=== PATIENT | male | born 1930 | race Caucasian/White ===

== ENCOUNTER 2018-12-25 17:28 | Inpatient (IN) ==
[2018-12-25 18:04] LABS: BASO# 0.03 X1000 (0.0-0.2); BASO% 0.3 % (0.0-0.8); EOS# 0.16 X1000 (0.0-0.7); EOS% 1.6 % (0.0-10.0); HEMATOCRIT 29.7 % (42.0-52.0); HEMOGLOBIN 10.4 g/dL (14.0-18.0); IMM GRAN# 0.02 X1000 (0.0-0.04); IMM GRAN% 0.2 % (0.0-0.5); LYMPH# 1.24 X1000 (1.2-3.4); LYMPH% 12.4 % (20.5-51.1); MCH 30.3 PG (27-31); MCV 86.6 FL (81-99); MONO# 0.65 X1000 (0.11-0.59); MONO% 6.5 % (1.7-9.3); MPV 8.6 FL (7.4-10.4); NEUT# 7.88 X1000 (1.4-6.5); PLT 311 X1000 (130-400); RBC 3.43 XMIL (4.7-6.1); RDW 13.2 % (11.5-14.5); WBC 9.98 X1000 (4.8-10.8)
[2018-12-25 18:42] LABS: ESTIMATED GFR > 60
--- NOTE | 2018-12-25 18:42 | Diag Imaging Result Doc PS360 ---
EXAM: CT HEAD/C-SPINE W/O CONTRAST INDICATION: fall head injury concrete TECHNIQUE: This exam was performed using automated exposure control, adjustment of mA or kV according to patient size, and/or use of iterative reconstruction technique. COMPARISON: 10/25/2018 FINDINGS: Head: There is fairly advanced diffuse brain atrophy. There is a stable hygroma overlying the left cerebral hemisphere. These findings are stable. There is no definite acute infarct given the limited sensitivity of CT versus MRI. There is no discrete intracranial mass, mass effect, or acute intracranial hemorrhage. There are bifrontal craniotomy defects. The calvaria is intact, otherwise. There is chronic left maxillary sinus mucosal disease, stable. C-spine: There is multilevel degenerative disc disease and facet arthropathy that is essentially stable as compared to the previous study. Otherwise, there is no discrete fracture, subluxation, or intrinsic osseous lesion. The surrounding soft tissues are essentially unremarkable. IMPRESSION: 1.Stable chronic changes but no evidence of acute intracranial pathology. 2.Stable multilevel degenerative arthropathy but no evidence of fracture or other definite acute C-spine injury. Electronically signed by Levi Bonilla 12/25/2018 6:40 PM
--- NOTE | 2018-12-25 18:48 | Diag Imaging Result Doc PS360 ---
EXAM: CHEST-2 VIEWS INDICATION: uri copd TECHNIQUE: 2 views COMPARISON: 08/16/2018 FINDINGS: The lungs are grossly clear. There is no discrete pleural fluid collection or pneumothorax. The cardiomediastinal silhouette and central vasculature are grossly unremarkable. IMPRESSION: No evidence of acute pathology by plain radiograph. Electronically signed by Levi Bonilla 12/25/2018 6:45 PM
[2018-12-25 18:59] LABS: AGAP 11; ALBUMIN 3.5 g/dL (3.5-5.0); ALKALINE PHOSPHATASE 141 U/L (32-122); BUN 9 mg/dL (8-22); CALCIUM 8.7 mg/dL (8.8-10.2); CHLORIDE 86 mmol/L (98-107); COSMO 242; CREATININE 0.6 mg/dL (0.7-1.2); GLUCOSE 113 mg/dL (70-104); GOT 23 U/L (10-34); GPT 16 U/L (10-44); POTASSIUM 4.2 mmol/L (3.5-5.1); SODIUM 120 mmol/L (136-145); TCO2 24 mmol/L (25-35); TOTAL PROTEIN 6.5 g/dL (6.3-8.3)
[2018-12-25] MEDS ORDERED: XYLOCAINE-MPF 1% ONE (19:09)
[2018-12-25] MEDS ORDERED: XYLOCAINE-MPF 1% INJ ONE (19:12)
[2018-12-25] MEDS ORDERED: NS 1,000 ML ONE (22:20)
[2018-12-25] MEDS ORDERED: NS 1,000 ML IV ONE (22:22)
[2018-12-26 02:04] LABS: BILIRUBIN URINE NEGATIVE (NEGATIVE); BLOOD URINE NEGATIVE (NEGATIVE); CLARITY SL. CLOUDY (CLEAR); COLOR YELLOW; GLUCOSE URINE NEGATIVE (NEGATIVE); KETONE URINE NEGATIVE (NEGATIVE); LEUKOCYTES URINE 2+ (NEGATIVE); NITRITE URINE NEGATIVE (NEGATIVE); PROTEIN URINE NEGATIVE (NEGATIVE); SP GRAVITY URINE 1.005; UROBILINOGEN URINE NORMAL
[2018-12-26 02:05] LABS: URINE WBC TNTC /HPF (<10)
[2018-12-26 02:06] LABS: URINE BACTERIA 4+ /HFP; URINE EPITHELIAL CELLS <10 /HPF (<10); URINE RBC <10 /HPF (<10); URINE SOURCE CLEAN CATCH
[2018-12-26] MEDS ORDERED: CIPRO PO ONE (03:19)
--- NOTE | 2018-12-26 04:02 | PROVIDER DOCUMENTATION ---
This chart was entered by Saranya Bonilla Scribe, acting as scribe for Sushil Garrido MD. HPI-Head Injury - General Chief Complaint: Head Injury Stated Complaint: FALL / HEAD INJURY Time Seen by Provider: 12/25/18 19:36 Source: patient Allergies/Adverse Reactions: Patient Allergies Allergy/AdvReac Type Severity Reaction Status Date / Time bee venom protein (honey bee) Allergy Unknown Verified 01/22/18 19:26 gabapentin Allergy Unknown Verified 01/22/18 19:26 Home Medications: Home Medication List Medication Instructions Recorded Confirmed Last Taken Type Atorvastatin Calcium 80 mg PO QHS 01/22/18 08/19/18 01/20/18 History Donepezil HCl 10 mg PO HS 01/22/18 08/16/18 01/20/18 History Finasteride 5 mg PO DAILY 01/22/18 08/16/18 01/20/18 History Levothyroxine Sodium [Synthroid] 100 mcg PO DAILY@0600 01/22/18 08/19/18 History Omeprazole 40 mg PO DAILY@0600 01/22/18 08/19/18 01/20/18 History Quetiapine Fumarate 50 mg PO HS 01/22/18 08/16/18 01/20/18 History Tamsulosin [Flomax] 0.4 mg PO QHS 01/22/18 08/16/18 01/20/18 History Tiotropium Grahn Inhaler 2 puff INH RTDAILY 01/22/18 08/16/18 01/20/18 History [Spiriva] Albuterol Sulfate [Proair Hfa] 2 inh PO Q4HR PRN 08/16/18 08/16/18 Unknown History Clotrimazole/Betamethasone Dip 1 gm TOP DIRECTED 08/16/18 08/16/18 Unknown History [Clotrimazole-Betamethasone Crm] Fluticasone 50 Mcg Nasal [place] 2 spray JESSICA DAILY PRN 08/16/18 08/16/18 Unknown History [Flonase] Latanoprost 1 drop BOTH EYES HS 08/16/18 08/16/18 Unknown History - History of Present Illness-Head Injury Nature of Presenting Problem: 88 yom presents to ed w/co fell face first today, has 2 cuts on front of head on left side. pt has small scratch on right hand. pt has hx of several subdurals in past. Head Injury Location: reports: frontal (left side) Review of Systems - Adult - REVIEW OF SYSTEMS - ADULT Constitutional: reports: no symptoms reported Eyes: reports: no symptoms reported Ears, Nose, Mouth & Throat: reports: no symptoms reported Cardiovascular: reports: no symptoms reported Respiratory: reports: no symptoms reported Gastrointestinal: reports: no symptoms reported Genitourinary: reports: no symptoms reported Musculoskeletal: reports: no symptoms reported Integumentary: reports: see HPI, other (laceration and abrasion on left frontal part of skull) Neurological: reports: no symptoms reported Psychiatric: reports: no symptoms reported Endocrine: reports: no symptoms reported Hematologic/Lymphatic: reports: no symptoms reported Allergic/Immunologic: reports: no symptoms reported All Other Systems: Reviewed and Negative Past History - Adult - PAST MEDICAL HISTORY-ADULT Review of Records: reports: Old Records Reviewed, Nursing Assessment Review, Medications Reviewed, Social history reviewed & non-contributory. Major Childhood Illnesses: reports: denies history Cardiovascular: reports: HTN, hyperlipidemia Respiratory: reports: COPD Gastrointestinal: reports: GERD Obstetrical/Gynecological: reports: denies history Genitourinary: reports: denies history Musculoskeletal: reports: denies history Neurological: reports: dementia (mild), TIA, other (subdural hemorrhages) Endocrine/Immune: reports: Diabetes, thyroid disorder Other Conditions: reports: denies history - PRIOR SURGERIES/PROCEDURES Surgical/Procedure History: reports: other (craniotomy in 1960s) - IMMUNIZATION STATUS Childhood Immunizations: See Nurse Assessment Flu Vaccine: See Nurse Assessment - FAMILY HISTORY Family History: reviewed, not pertinent - SOCIAL HISTORY Smoking: other (former) Substance Use: alcohol Alcohol Use Frequency: occasionally Physical Exam- Neurological - Physical Exam-Neuro Initial Vital Signs Reviewed: Yes General Appearance: appears well, alert, no apparent distress Eye Exam: bilateral eye: normal inspection, PERRL, EOMI HENMT: normocephalic/atraumatic, moist mucous membranes, normal ENT inspection Head Injury: active bleeding, lacerations, tenderness. negative: Diaz's Sign , contusions, raccoon eyes Neck: non-tender, full range of motion, supple, normal inspection Respiratory: chest non-tender, lungs clear, normal breath sounds Cardiovascular: normal peripheral pulses, regular rate, rhythm Abdominal Exam: normal bowel sounds, non tender, soft Lymphatic: no adenopathy Extremity: normal range of motion, non-tender, normal inspection lpc Exam: normal hearing, normal speech, PERRL Coordination/Gait: normal finger to nose Motor/Sensory: no motor deficit, no sensory deficit, no pronator drift Neurologic: lpc II-XII nml as tested, grossly normal, no motor/sensory deficits Integumentary: normal color, normal turgor, warm/dry Psych/Mental Status: normal mood/affect, normal thought content, normal thought process, oriented x 3 - Glascow Coma Scale Best Eye Response: (4) open spontaneously Best Verbal Response: (5) oriented Best Motor Response: (6) obeys commands Total Glascow Score: 15 Progress - PLAN OF CARE/RESULTS Progress/Plan/Lab Results: Vital Signs - 8 hr 12/25/18 22:28 12/26/18 00:32 12/26/18 01:40 Pulse Rate 53 L 52 L 57 L Respiratory Rate 16 18 14 Blood Pressure 149/77 132/74 150/75 O2 Sat by Pulse Oximetry 98 95 100 12/26/18 03:38 Pulse Rate 58 L Respiratory Rate 18 Blood Pressure 150/75 O2 Sat by Pulse Oximetry 97 Laboratory Results - last 24 hr 12/25/18 12/25/18 12/26/18 17:56 17:56 01:18 WBC 9.98 RBC 3.43 L Hgb 10.4 L Hct 29.7 L MCV 86.6 MCH 30.3 MCHC 35.0 RDW Std Deviation 13.2 Plt Count 311 MPV 8.6 Immature Gran % (Auto) 0.2 Neut % (Auto) 79.0 H Lymph % (Auto) 12.4 L [place] % (Auto) 6.5 Eos % (Auto) 1.6 Baso % (Auto) 0.3 Immature Gran # (Auto) 0.02 Neut # (Auto) 7.88 H Lymph # (Auto) 1.24 [place] # (Auto) 0.65 H Eos # (Auto) 0.16 Baso # (Auto) 0.03 Sodium 120 L* Potassium 4.2 Chloride 86 L Carbon Dioxide 24 L Anion Gap 11 BUN 9 Creatinine 0.6 L Estimated GFR/1.73 m2 > 60 BUN/Creatinine Ratio 15 Glucose 113 H Calculated Osmolality 242 Calcium 8.7 L Total Bilirubin 0.30 AST 23 ALT 16 Alkaline Phosphatase 141 H Total Protein 6.5 Albumin 3.5 Globulin 3.0 Albumin/Globulin Ratio 1.0 Urine Source CLEAN CATCH Urine Color YELLOW Urine Clarity SL. CLOUDY A Urine pH 7.0 Ur Specific [place] 1.005 Urine Protein NEGATIVE Urine Ketones NEGATIVE Urine Blood NEGATIVE Urine Nitrite NEGATIVE Urine Bilirubin NEGATIVE Urine Urobilinogen NORMAL Urine Microscopic RBC <10 Urine WBC 2+ A Urine Microscopic WBC TNTC A Ur Epithelial Cells <10 Urine Bacteria 4+ Urine Glucose NEGATIVE Orders Category Date Time Status CHEST-2 VIEWS [RAD] Stat Exams 12/25/18 17:[address] HEAD/C-SPINE W/O CONTRAST [CT] Stat Exams 12/25/18 17:43 Completed CBC WITH DIFF [HEME] Stat Lab 12/25/18 17:56 Completed COMPREHENSIVE METABOLIC PANEL [CHEM] Stat Lab 12/25/18 17:56 Completed UA NIMS W/REFLEX CULT PL [URINALYSIS] Stat Lab 12/26/18 01:18 Completed URINE CULTURE [RM] Routine Lab 12/26/18 02:06 Ordered 0.9% Sodium Chloride Inj [Ns] 1,000 ml Med 12/25/18 22:20 Discontinued .ROUTE As Directed 0.9% Sodium Chloride Inj [Ns] 1,000 ml Med 12/25/18 22:22 Active IV 150 mls/hr Ciprofloxacin [Cipro] Med 12/26/18 03:19 Discontinued 500 mg PO NOW ONE Lidocaine 1% Pf [Xylocaine-Mpf 1%] Med 12/25/18 19:09 Discontinued 30 ml .ROUTE .STK-MED ONE Lidocaine 1% Pf [Xylocaine-Mpf 1%] Med 12/25/18 19:12 Discontinued 30 ml INJ NOW ONE EKG [EKG] Stat Ther 12/25/18 22:28 Ordered Result Diagrams: 12/25/18 17:56 12/25/18 17:56 - REASSESSMENT Reassessment #1 Time Reassessed: 19:30 (Dr. Garrido administered 4 sutures in pt's left frontal skull on laceration) Status: improving - EKG 1 Time of EKG reading by physician:: 22:35 EKG Read and Signed by:: Sushil Garrido (questionable lead plaement, v3/v2) EKG Interpretation (*Must complete 3 of following elements*): Abnormal Rate: 49 (anterior infract age undetermined ) Rhythm: Junctional rhythm w/occ premature ventricular complexes Beeler: normal QRS: normal Departure - Departure Date of Disposition Decision: 12/26/18 Time of Disposition Decision: 04:01 DIAGNOSIS: Hyponatremia, COPD (chronic obstructive pulmonary disease) with emphysema Disposition: HOME 01 Certified Medical Emergency: Emergent Condition: Stable Referrals and Follow-Ups: Zach Feldman MD [Primary Care Provider] - - Critical Care Note This patient required my direct & personal management of CC.: No Attestation - Physician/ HORTENCIA Attestation Patient care was provided by Advanced Practice Provider:: No The physician spent face to face time with patient:: Yes Advanced Practice Provider documentation review:: Supervising physician onsite and consulted in the evaluation and care of this patient. The physician did have a face to face encounter with the patient. This chart was documented by the indicated scribe, (Saranya Bonilla Scribe) and accurately reflects the services I performed and decisions made by me, Sushil Garrido MD, as attested by the provider's signature.
[2018-12-26] MEDS ORDERED: NS 1,000 ML IV ONE (06:17)
[2018-12-26] MEDS ORDERED: LIDODERM TOP ONE (06:31)
[2018-12-26 06:52] LABS: AGAP 9; BUN 7 mg/dL (8-22); CALCIUM 8.3 mg/dL (8.8-10.2); CHLORIDE 92 mmol/L (98-107); COSMO 249; CREATININE 0.5 mg/dL (0.7-1.2); ESTIMATED GFR > 60; GLUCOSE 86 mg/dL (70-104); POTASSIUM 3.8 mmol/L (3.5-5.1); SODIUM 125 mmol/L (136-145); TCO2 24 mmol/L (25-35)
[2018-12-26] MEDS: CIPRO PO ONE ×2 (08:44→08:50)
[2018-12-26] MEDS: ROCEPHIN 1 GM in NS 50 ML IV SCH (10:54)
[2018-12-26] MEDS: NS 1,000 ML IV SCH ×2 (10:54→17:23)
[2018-12-26 12:38] LABS: AGAP 8; BUN 6 mg/dL (8-22); CALCIUM 8.3 mg/dL (8.8-10.2); CHLORIDE 92 mmol/L (98-107); COSMO 252; CREATININE 0.5 mg/dL (0.7-1.2); ESTIMATED GFR > 60; GLUCOSE 117 mg/dL (70-104); POTASSIUM 3.4 mmol/L (3.5-5.1); SODIUM 126 mmol/L (136-145); TCO2 25 mmol/L (25-35)
--- NOTE | 2018-12-26 12:49 | HISTORY AND PHYSICAL ---
PRIMARY CARE PHYSICIAN: Zach Feldman MD. CHIEF COMPLAINT: "I walked out of my garage and my foot caught on the concrete." HISTORY OF PRESENTING ILLNESS: This is an 88-year-old male who presents to [facility] ER stating that he fell face-first and had 2 cuts on the front side of his head on the left side and a small scratch on his right hand. States he was walking out in his garage and his foot got caught on the concrete and he tripped and fell. He has a history of multiple falls with several ER visits over the past year including several subdural hematomas in the past. He has poor short-term memory. His workup in the ER showed a sodium of 120. Urinalysis showed negative nitrites, but 2+ white blood cells and 4+ bacteria. We did do a CT of the head and cervical spine that showed stable chronic changes but no evidence of acute intracranial pathology. Stable multilevel degenerative arthropathy but no evidence of fracture or other definite acute cervical spine injury. The laceration to the left side of his head did require some stitches that were placed by the ER physician x4 stitches. He tolerated that procedure well and was admitted for further evaluation and treatment. PAST MEDICAL HISTORY: Hypertension, hyperlipidemia, COPD, GERD, dementia, TIA, subdural hematomas, diabetes, and hypothyroidism. PAST SURGICAL HISTORY: Craniotomy in the 1960s. FAMILY HISTORY: Reviewed and noncontributory. SOCIAL HISTORY: He currently lives alone, but has 2 volunteer caregivers. He continues to smoke 1 cigarette daily. Denies any illicit drug use. Also drinks occasional beer and wine. ALLERGIES: Bee venom, protein, and Gabapentin. HOME MEDICATIONS: We will need to obtain a current list to review and reconcile and restart as appropriate. I have placed an order for nursing to update and confirm home medications. REVIEW OF SYSTEMS: He denied any fever, chills, blurred vision. He does report a headache and he does have dizziness. Denies any cough, congestion, shortness of breath, abdominal pain, constipation, diarrhea, or burning or hurting with urination. PHYSICAL EXAMINATION: VITAL SIGNS: On arrival, he had a temperature of 98 degrees, pulse 57, respirations 18, blood pressure 165/57, saturating 99% on room air. GENERAL: This is an 88-year-old male lying in the bed. Able to answer questions, but does have some confusion. Short-term memory loss. HEENT: He is noted to have a laceration to the left side of his scalp that has been sutured with 4 sutures, oozing a small amount of serous drainage. He has a small laceration above his left eyebrow that is closed. Normal ENT inspection. Oropharynx and nares are clear. NECK: Normal inspection. Normal range of motion. HEART: Regular rate and rhythm. No murmurs, rubs, or gallops. ABDOMEN: Soft, nontender, nondistended. Bowel sounds are present x4 quadrants. EXTREMITIES: He has 3/5 strength x4 extremities. NEUROLOGICAL: Cranial nerves II through XII grossly intact. ASSESSMENT: 1. Frequent falls. 2. Hyponatremia. 3. Urinary tract infection. 4. Laceration to left anterior forehead. 5. Dementia. PLAN: He was admitted to the medical unit at [place], placed on a healthy heart diet. We will get physical therapy to evaluate and we will do urine sodium, osmolality. Urine culture is pending. We are going to check another basic metabolic profile at noon today. This morning's has gone up from 120 on arrival to 125. He is on normal saline at 150 mL an hour. When the current bag finishes, we will decrease to [address] him on Rocephin 1 gram IV q.24 h. and then recheck a CBC and BMP in the a.m. We will have [facility] to consult patient for possible rehab. We will get physical therapy to evaluate and treat. Just about every visit to the ER over the past year has been related to some type of fall and injury to his head. Again, he lives along with some volunteer caregivers so I feel like he probably is going to need at least some rehab at this time. We will evaluate his home medications as stated earlier to see if he is on any type of diuretics. We will hold those if he is, but we will review those once we obtain a current list. Further orders after seen by attending. Dictated by PETE Davalos for Amari Smith MD cc: PETE Davalos MD Akram Haggag, MD
--- NOTE | 2018-12-26 13:46 | EKG Report ---
Test Performed on : 12/25/2018 10:35:44 PM Test Reason : hr Blood Pressure : / mmHG Vent. Rate : 049 BPM Atrial Rate : 051 BPM P-R Int : 000 ms QRS Dur : 094 ms QT Int : 496 ms P-R-T Axes : 000 -28 -15 degrees QTc Int : 448 ms Junctional rhythm. with occasional premature ventricular complexes. Anterior infarct , age undetermined Abnormal ECG When compared with ECG of 16-AUG-2018 09:37, premature ventricular complexes. are now present Anterior infarct is now present Nonspecific T wave abnormality no longer evident in Anterior leads Unconfirmed Result
[2018-12-26] MEDS ORDERED: XYLOCAINE 4% TOPICAL SOLUTION TOP PRN (17:37)
[2018-12-26] MEDS: ARICEPT PO SCH (20:09)
[2018-12-26] MEDS: ZYRTEC PO SCH (20:09)
[2018-12-26] MEDS: SEROQUEL PO SCH (20:09)
[2018-12-26] MEDS: FLOMAX PO SCH (20:09)
[2018-12-26] MEDS: LIPITOR PO SCH (20:09)
[2018-12-26] MEDS: XALATAN 0.005% OPH SOLN BOTH EYES SCH (20:10)
--- NOTE | 2018-12-26 20:10 | PROGRESS NOTE ---
DATE: 12/26/2018 SUBJECTIVE: The patient has no major complaints. He seems to be doing well. Apparently fell earlier today. He thinks he is fine and this was all out of, I am not sure what to say, out of line or exaggeration but not completely sure he understands everything. He has quite got complete insight into his disease state. He says he drinks 15 cups of coffee a day. There was some mention of drinking wine, but then he states it is unclear if he drinks that every day and I am not sure if he would be able to give an accurate assessment in any case. He lives in assisted living, presumably that would be regulated somewhat, but he has had several subdural hematomas. In any case he was hyponatremic without a clear source. That has since improved. He is not on anything that would necessarily make him hyponatremic. Mechanism is not completely evident, but he is slowly improving. We will continue normal saline and follow his levels. There is also concern over possible UTI based on his urine culture had [id number]-count white blood cells, so we will empirically trend that. This is a [id number] encounter note with Emily Gómez. cc: MD Zach Inman MD
[2018-12-27] MEDS: NS 1,000 ML IV SCH ×3 (02:29→13:05)
[2018-12-27] MEDS: PRILOSEC PO SCH (05:14)
[2018-12-27] MEDS: SYNTHROID PO SCH (05:15)
[2018-12-27 07:24] LABS: BASO# 0.03 X1000 (0.0-0.2); BASO% 0.4 % (0.0-0.8); EOS# 0.16 X1000 (0.0-0.7); EOS% 2.1 % (0.0-10.0); HEMATOCRIT 29.6 % (42.0-52.0); HEMOGLOBIN 10.1 g/dL (14.0-18.0); IMM GRAN# 0.01 X1000 (0.0-0.04); IMM GRAN% 0.1 % (0.0-0.5); LYMPH# 1.03 X1000 (1.2-3.4); LYMPH% 13.5 % (20.5-51.1); MCH 29.8 PG (27-31); MCHC 34.1 g/dL (33-37); MCV 87.3 FL (81-99); MONO# 0.46 X1000 (0.11-0.59); NEUT# 5.96 X1000 (1.4-6.5); NEUT% 77.9 % (42.2-75.2); PLT 294 X1000 (130-400); RBC 3.39 XMIL (4.7-6.1); RDW 13.3 % (11.5-14.5); WBC 7.65 X1000 (4.8-10.8)
[2018-12-27 07:25] LABS: AGAP 10; BUN 7 mg/dL (8-22); CALCIUM 8.9 mg/dL (8.8-10.2); CHLORIDE 99 mmol/L (98-107); COSMO 264; CREATININE 0.5 mg/dL (0.7-1.2); ESTIMATED GFR > 60; GLUCOSE 100 mg/dL (70-104); POTASSIUM 3.8 mmol/L (3.5-5.1); SODIUM 133 mmol/L (136-145); TCO2 25 mmol/L (25-35)
[2018-12-27] MEDS: SPIRIVA INH SCH (07:49)
[2018-12-27] MEDS: ROCEPHIN 1 GM in NS 50 ML IV SCH (08:43)
[2018-12-27] MEDS: VITAMIN C PO SCH (08:43)
[2018-12-27] MEDS: PROSCAR PO SCH (08:43)
[2018-12-27] MEDS ORDERED: GEODON IM PRN (14:07)
[2018-12-27] MEDS ORDERED: STERILE WATER INJ. INJ PRN (14:07)
[2018-12-27] MEDS ORDERED: NS 1,000 ML IV SCH (14:15)
--- NOTE | 2018-12-27 19:48 | PROGRESS NOTE ---
DATE: 12/27/2018 SUBJECTIVE: The patient has no major complaints. OBJECTIVE: Vital Signs: Blood pressure is 142/64, heart rate of 58, respiratory rate of 18, temperature 97.4 degrees. Cardiovascular: Regular rate and rhythm. Pulmonary: Bilateral breath sounds. Clear to auscultation. Gastrointestinal: Soft, nontender, nondistended. Bowel sounds are positive. Extremities: No clubbing or cyanosis. Lymphatics: No peripheral edema. Neurological: Nonfocal. LABORATORY DATA: White count 7, hemoglobin and hematocrit 10 and 29, platelets 294,000. Sodium is up to 133. PROBLEM LIST: 1. Hyponatremia. Overall, seems to be improved. Unclear etiology, although patient is on really nothing that would lower sodium, but is much improved now. We may need to just consider fluid restriction. I am going to continue gentle fluids and follow. 2. Dementia, with agitation. He has had issues with confusion and agitation, although that seems to have overall improved. 3. Putative urinary tract infection. No symptoms right now, and urine culture is negative. He is empirically on Rocephin until we can follow culture results out. 4. Disposition. I anticipate he will be ready to go back to assisted living tomorrow. I am not entirely sure what his functional status is, but we will work on that now. Physical therapy I think has worked with him today, and states he is doing okay. Some impulsiveness, but overall improved, so I anticipate he will probably go back to assisted living tomorrow. We will follow. cc: Amari Smith MD
[2018-12-27] MEDS: LIPITOR PO SCH (22:00)
[2018-12-27] MEDS: SEROQUEL PO SCH (22:00)
[2018-12-27] MEDS: FLOMAX PO SCH (22:00)
[2018-12-27] MEDS: ZYRTEC PO SCH (22:00)
[2018-12-27] MEDS: ARICEPT PO SCH (22:01)
[2018-12-27] MEDS: XALATAN 0.005% OPH SOLN BOTH EYES SCH (22:13)
[2018-12-28 05:22] VITALS: BP 144/54
[2018-12-28] MEDS: SYNTHROID PO SCH (06:13)
[2018-12-28] MEDS: PRILOSEC PO SCH (06:13)
[2018-12-28 06:54] LABS: BASO# 0.03 X1000 (0.0-0.2); BASO% 0.5 % (0.0-0.8); EOS% 3.2 % (0.0-10.0); HEMATOCRIT 27.5 % (42.0-52.0); HEMOGLOBIN 9.4 g/dL (14.0-18.0); IMM GRAN# 0.01 X1000 (0.0-0.04); IMM GRAN% 0.2 % (0.0-0.5); LYMPH# 1.31 X1000 (1.2-3.4); LYMPH% 20.9 % (20.5-51.1); MCH 30.1 PG (27-31); MCHC 34.2 g/dL (33-37); MCV 88.1 FL (81-99); MONO# 0.42 X1000 (0.11-0.59); MONO% 6.7 % (1.7-9.3); NEUT# 4.29 X1000 (1.4-6.5); NEUT% 68.5 % (42.2-75.2); PLT 262 X1000 (130-400); RBC 3.12 XMIL (4.7-6.1); RDW 13.3 % (11.5-14.5); WBC 6.26 X1000 (4.8-10.8)
[2018-12-28 07:43] LABS: AGAP 10; BUN 10 mg/dL (8-22); CALCIUM 8.5 mg/dL (8.8-10.2); CHLORIDE 100 mmol/L (98-107); COSMO 266; CREATININE 0.5 mg/dL (0.7-1.2); ESTIMATED GFR > 60; GLUCOSE 82 mg/dL (70-104); POTASSIUM 3.9 mmol/L (3.5-5.1); SODIUM 134 mmol/L (136-145); TCO2 24 mmol/L (25-35)
[2018-12-28] MEDS: SPIRIVA INH SCH (08:09)
[2018-12-28] MEDS: ROCEPHIN 1 GM in NS 50 ML IV SCH (09:46)
[2018-12-28] MEDS: VITAMIN C PO SCH (09:46)
[2018-12-28] MEDS: PROSCAR PO SCH (09:47)
--- NOTE | 2018-12-29 02:13 | DISCHARGE SUMMARY ---
ADMISSION DATE: 12/26/2018 DISCHARGE DATE: 12/28/2018 PRIMARY CARE PHYSICIAN: Dr. Feldman. ADMISSION DIAGNOSES: 1. Frequent falls. 2. Hyponatremia. 3. Urinary tract infection. 4. Laceration to left anterior forehead. 5. Dementia. DISCHARGE DIAGNOSES: 1. Hyponatremia, resolved. 2. Dementia with agitation. 3. Urinary tract infection with mixed javier culture. 4. Frequent falls with laceration to left forehead, status post last fall. HISTORY OF PRESENTING ILLNESS: This is an 88-year-old male who presented to the ER after he stated that he had fell face-first while walking out of his garage stating that he caught his foot on the concrete. He sustained 2 cuts to the front side of his head and a small scratch to his right hand. He has had multiple falls with several ER visits over the past year that included several subdural hematomas in the past. He has very poor short-term memory. When he arrived, his sodium was 120. His urinalysis showed negative nitrites, but 2+ white blood cells and 4+ bacteria. We did a CT of the head and cervical spine that showed stable chronic changes but no evidence of acute intracranial pathology and stable multilevel degenerative arthropathy but no evidence of fracture or other definite acute cervical spine injury. He had 4 stitches placed to his head by the ER physician. He was admitted. We placed him on IV hydration, placed him on IV antibiotics and we consulted Physical Therapy and he ambulated 200+ feet with a rolling walker. His sodium went from 120 on admission to 134 today. He did have some periods of confusion requiring some restraints, but that has resolved and he is much more alert at this time and it is felt that he can safely be discharged to independent living today with Home Health services. DISCHARGE MEDICATIONS: Include ascorbic acid 500 mg p.o. daily, atorvastatin 80 mg p.o. at bedtime, cetirizine 10 mg p.o. at bedtime, donepezil 10 mg p.o. at bedtime, finasteride 5 mg p.o. daily, latanoprost 1 drop to both eyes at bedtime, levothyroxine 100 mcg p.o. daily, lidocaine topically b.i.d. p.r.n., omeprazole 40 mg p.o. daily, quetiapine 100 mg p.o. at bedtime, tamsulosin 0.4 mg p.o. at bedtime, Spiriva 2 puff inhalation daily, ProAir 2 puffs p.o. q.4 hours p.r.n., cefdinir 300 mg p.o. b.i.d. #10 with no refills and Flonase 2 sprays nasally daily p.r.n. FOLLOWUP: He needs to follow up with his primary care physician in 1 to 2 weeks and call their office for an appointment. All discharge instructions have been reviewed and he verbalized understanding. TIME: 33 minute discharge. Dictated by PETE Davalos for Amari Smith MD cc: PETE Davalos MD Akram Haggag, MD
--- NOTE | 2018-12-29 04:50 | DISCHARGE SUMMARY ---
ADMISSION DATE: 12/26/2018 DISCHARGE DATE: 12/28/2018 ADDENDUM HOSPITAL COURSE: The patient looks well the day of discharge. No major complaints. He seems to be doing okay. Sodium is up to 134. He did well with PT today, he walked about 260 feet, full weightbearing with a cardiac walker. Recommended home exercise program. Really doing well. Probably outpatient PT or home PT is stable. In any case, discharge is stable. He will need to get situated. He has a putative UTI, but cultures negative, but I am going to give him Omnicef to complete his course and recommend fluid restriction. DISPOSITION: He will go back to assisted living. He is an independent living at this time. This is a discharge addendum, [id number]-fy-rori note with Emily Galvin. cc: Amari Smith MD
--- NOTE | 2018-12-29 05:18 | DISCHARGE SUMMARY ---
ADMISSION DATE: 12/26/2018 DISCHARGE DATE: 12/28/2018 Patient is well. No major issues. Sodium is 134. He seems to be doing okay. No major complaints. He seems stable. He did very well with physical therapy. I think he walked up to 260 feet, so we will discharge him on fluid restriction and finish a course of Omnicef. This is a [id number] encounter note. cc: Amari Smith MD
== END 2018-12-28 17:40 | disposition home health service (06) | DRG 641 ==
LOC: P.ED 17:28 → P.MEDSURG 17:28 → SUATTDRO 12-26 07:41 → OBSVTOIN 12-26 07:41
PROVIDERS: ADMIT Internal Medicine; ATTEND Internal Medicine
CPT/HCPCS: 70450; 71020; 71046; 72125; 80048; 80053; 81001; 83935; 84300; 85025; 87088; 93005; 94640; 96360; 96361; 97163; 97530; 99285; A9270; J0696; J7030; S0138

== ENCOUNTER 2019-03-18 10:28 | Inpatient (IN) ==
[2019-03-18 11:20] LABS: BASO# 0.02 X1000 (0.0-0.2); BASO% 0.3 % (0.0-0.8); EOS# 0.16 X1000 (0.0-0.7); EOS% 2.4 % (0.0-10.0); HEMATOCRIT 29.3 % (42.0-52.0); HEMOGLOBIN 10.4 g/dL (14.0-18.0); IMM GRAN# 0.01 X1000 (0.0-0.04); IMM GRAN% 0.1 % (0.0-0.5); LYMPH# 1.19 X1000 (1.2-3.4); LYMPH% 17.6 % (20.5-51.1); MCH 29.8 PG (27-31); MCHC 35.5 g/dL (33-37); MONO# 0.42 X1000 (0.11-0.59); MONO% 6.2 % (1.7-9.3); MPV 8.2 FL (7.4-10.4); NEUT# 4.98 X1000 (1.4-6.5); NEUT% 73.4 % (42.2-75.2); PLT 309 X1000 (130-400); RBC 3.49 XMIL (4.7-6.1); RDW 12.3 % (11.5-14.5); WBC 6.78 X1000 (4.8-10.8)
[2019-03-18 11:36] LABS: ESTIMATED GFR > 60
[2019-03-18 11:47] LABS: AGAP 8; ALBUMIN 3.4 g/dL (3.5-5.0); ALKALINE PHOSPHATASE 113 U/L (32-122); BUN 8 mg/dL (8-22); CALCIUM 8.3 mg/dL (8.8-10.2); CHLORIDE 85 mmol/L (98-107); COSMO 239; CREATININE 0.6 mg/dL (0.7-1.2); GLUCOSE 103 mg/dL (70-104); GOT 16 U/L (10-34); GPT 8 U/L (10-44); LIPASE 13 U/L (13-60); POTASSIUM 4.3 mmol/L (3.5-5.1); TCO2 27 mmol/L (25-35)
[2019-03-18] MEDS ORDERED: NS 1,000 ML IV ONE ×2 (12:01→12:31)
--- NOTE | 2019-03-18 12:01 | Diag Imaging Result Doc PS360 ---
EXAM: CT HEAD W/O CONTRAST 03/18/2019 HISTORY: head injury yesterday with vomiting today TECHNIQUE: This exam was performed using automated exposure control, adjustment of mA or kV according to patient size, and/or use of iterative reconstruction technique. COMMENT: There is generalized cerebral atrophy. This has not changed significantly since 12/25/2018. There has been previous frontal craniotomy. There is no evidence of bleed, mass effect, or abnormal extra-axial fluid collection. There is enlargement of the pituitary which was also present at the time the previous study. The visualized paranasal sinuses are clear. The calvarium is otherwise intact. IMPRESSION: Stable CT of the head. Electronically signed by Eduardo De Santiago 03/18/2019 11:58 AM
--- NOTE | 2019-03-18 12:03 | Diag Imaging Result Doc PS360 ---
EXAM: LUMBAR SPINE 2-VIEWS 03/18/2019 HISTORY: fall yesterday with left lower back pain today TECHNIQUE: Lumbosacral spine AP and lateral three views COMMENT: There is curvature of the lumbar spine with convexity to the right. The pedicles appear to be intact. There is multilevel degenerative disc disease with vacuum disc phenomenon at L3-4, L4-5 and L5-S1. There is an old compression fracture of the upper endplate of L1 which was also present on 10/25/2018. There is no evidence of acute fracture or subluxation. There are gallstones. There is calcification in the abdominal aorta. IMPRESSION: No evidence of acute bony abnormality. Cholelithiasis. Scoliosis and degenerative disc disease. Electronically signed by Eduardo De Santiago 03/18/2019 12:00 PM
[2019-03-18 12:14] LABS: SODIUM 120 mmol/L (136-145)
--- NOTE | 2019-03-18 12:19 | EKG Report ---
Test Performed on : 03/18/2019 12:16:28 PM Test Reason : CP Blood Pressure : / mmHG Vent. Rate : 051 BPM Atrial Rate : 051 BPM P-R Int : 184 ms QRS Dur : 098 ms QT Int : 484 ms P-R-T Axes : 000 -16 030 degrees QTc Int : 446 ms Sinus bradycardia. with marked sinus arrhythmia. with occasional premature ventricular complexes. Low voltage QRS Borderline ECG When compared with ECG of 14-MAR-2019 18:39, (Unconfirmed) premature ventricular complexes. are now present Vent. rate has decreased BY 42 BPM QRS duration has increased Criteria for Septal infarct are no longer present Unconfirmed Result
--- NOTE | 2019-03-18 12:31 | PROVIDER DOCUMENTATION ---
This chart was entered by Ivy Kenney Scribe, acting as scribe for Rubi Blank PA. HPI-Musculoskeletal Pain/Inj - GENERAL Chief Complaint: Head Injury Stated Complaint: FALL / BACK / HEAD PAIN Time Seen by Provider: 03/18/19 10:45 Source: patient, family - HX OF PRESENT ILLNESS-MUSKULOSKELTAL Nature of Presenting Problem: 88 y/o male presents to ED with low back pain, fatigue, blurred vision, and weakness onset last night after fall. Pt reports he fell in the bathroom last night and hit his head. Pt states he has had 1 episode of vomiting this morning. Pt reports he fell because his "walker went one way" and he "went another." Pt denies loss of consciousness and is not on blood thinners. Pt hypotensive in triage. Pt is currently being treated for bronchitis with levoquin. Pt is alert and oriented. Quality of Pain: reports: aching Severity in ED: moderate Onset/Duration: last night Timing: still present Modifying Factors: worse with: movement, palpation Any recent injury?: Yes (fall) Locality of Occurance: Home Similar Symptoms Previously?: No Recently seen or treated by another doctor?: Yes (ED for bronchitis) - FALL INJURY Location of Pain/Injury: reports: back Pain Radiation: reports: no radiation Reason for Fall: reports: other (malfunction with walker) Symptoms prior to fall:: reports: none Loss of Consciousness: no loss of consciousness Injury Associated Symptoms: reports: back/neck pain (low back), headaches, vomiting, weakness, other (head injury; fatigue; blurred vision; hypotension) - BACK & NECK PAIN/INJURY Back/Neck Pain Location: reports: lumbar spine, paraspinous muscles Context / Method of Injury: reports: fall Associated Symptoms: reports: lower back pain History of Chronic Neck or Back Pain?: No Review of Systems - Adult - REVIEW OF SYSTEMS - ADULT Constitutional: reports: fatique, other (hypotension). denies: chills, fever Eyes: reports: blurred vision. denies: eye pain Ears, Nose, Mouth & Throat: reports: no symptoms reported Cardiovascular: reports: other (hypotension). denies: chest pain, palpitations Respiratory: denies: cough, shortness of breath Gastrointestinal: reports: vomiting. denies: abdominal pain, diarrhea, nausea Genitourinary: reports: no symptoms reported Musculoskeletal: reports: back pain (low). denies: joint pain Integumentary: reports: no symptoms reported Neurological: reports: other (fall/head injury; weakness). denies: dizzines s/vertigo, seizure Psychiatric: reports: no symptoms reported Endocrine: reports: no symptoms reported Hematologic/Lymphatic: reports: no symptoms reported Allergic/Immunologic: reports: no symptoms reported All Other Systems: Reviewed and Negative Past History - Adult - PAST MEDICAL HISTORY-ADULT Review of Records: reports: Old Records Reviewed, Nursing Assessment Review, Medications Reviewed Major Childhood Illnesses: reports: denies history Cardiovascular: reports: HTN, hyperlipidemia Respiratory: reports: COPD Gastrointestinal: reports: GERD Obstetrical/Gynecological: reports: denies history Genitourinary: reports: denies history Musculoskeletal: reports: denies history Neurological: reports: CVA, dementia (mild), TIA, other (subdural hemorrhages) Endocrine/Immune: reports: Diabetes, thyroid disorder Other Conditions: reports: denies history - PRIOR SURGERIES/PROCEDURES Surgical/Procedure History: reports: other (craniotomy in 1960s; subdural bleed) - IMMUNIZATION STATUS Childhood Immunizations: See Nurse Assessment Flu Vaccine: See Nurse Assessment - FAMILY HISTORY Family History: reviewed, not pertinent - SOCIAL HISTORY Smoking: quit less than 1 year, less than 1 pack/day Provider spent 3-5 mins advising pt. on dangers of tobacco.: stopped smoking last week Substance Use: none/never Alcohol Use Frequency: rarely Living Situation: family Physical Exam-Injury Related - Physical Exam-Injury Related Initial Vital Signs Reviewed: Yes General Appearance: appears well, alert, no apparent distress (resting comfortably, pt is hard of hearing) Eyes: PERRL/EOMI, pink conjunctivae Head, Ears, Nose, Mouth & Throat: normocephalic/atraumatic (no evidence of trauma, no bruising/swelling/deformities), moist mucous membranes Neck: non-tender, full range of motion, supple Respiratory: chest non-tender, lungs clear, normal breath sounds Cardiovascular: regular rate, rhythm Abdominal Exam: normal bowel sounds, non tender, soft Back Exam: normal inspection (no bruising/swelling/deformity noted to left lower lumbar area at area of pain), no vertebral tenderness. negative: ecchymosis Extremity: normal inspection Integumentary: normal color, warm/dry, blanching Neurologic: grossly normal, no motor/sensory deficits Psych/Mental Status: normal thought content, normal thought process - Glascow Coma Score Best Eye Response (Page): (4) open spontaneously Best Verbal Response (Page): (5) oriented Best Motor Response (Jose Elias): (6) obeys commands Page Total: 15 Progress - PLAN OF CARE/RESULTS Progress/Plan/Lab Results: Vital Signs - 8 hr 03/18/19 10:31 Temperature 98 F Pulse Rate 58 L Respiratory Rate 18 Blood Pressure 93/49 O2 Sat by Pulse Oximetry 99 Laboratory Results - last 24 hr 03/18/19 03/18/19 11:10 11:10 WBC 6.78 RBC 3.49 L Hgb 10.4 L Hct 29.3 L MCV 84.0 MCH 29.8 MCHC 35.5 RDW Std Deviation 12.3 Plt Count 309 MPV 8.2 Immature Gran % (Auto) 0.1 Neut % (Auto) 73.4 Lymph % (Auto) 17.6 L Hernando % (Auto) 6.2 Eos % (Auto) 2.4 Baso % (Auto) 0.3 Immature Gran # (Auto) 0.01 Neut # (Auto) 4.98 Lymph # (Auto) 1.19 L Hernando # (Auto) 0.42 Eos # (Auto) 0.16 Baso # (Auto) 0.02 Sodium 120 L* Potassium 4.3 Chloride 85 L Carbon Dioxide 27 Anion Gap 8 BUN 8 Creatinine 0.6 L Estimated GFR/1.73 m2 > 60 BUN/Creatinine Ratio 13 Glucose 103 Calculated Osmolality 239 Calcium 8.3 L Total Bilirubin 0.40 AST 16 ALT 8 L Alkaline Phosphatase 113 Total Protein 6.0 L Albumin 3.4 L Globulin 3.0 Albumin/Globulin Ratio 1.0 Lipase 13 Orders Category Date Time Status Cardiac Monitoring DIRECTED Care 03/18/19 11:25 Active Saline Loc NOW Care 03/18/19 12:[address] HEAD W/O CONTRAST [CT] Stat Exams 03/18/19 10:55 Completed LUMBAR SPINE 2-VIEWS [RAD] Stat Exams 03/18/19 10:57 Completed CBC WITH ELECTRONIC DIFF [HEME] Stat Lab 03/18/19 11:10 Completed COMPREHENSIVE METABOLIC PANEL [CHEM] Stat Lab 03/18/19 11:10 Completed LIPASE [CHEM] Stat Lab 03/18/19 11:[address] W/POSS RFLX CULT [URINALYSIS] Stat Lab 03/18/19 11:25 Uncollected 0.9% Sodium Chloride Inj [Ns] 1,000 ml Med 03/18/19 12:01 Active IV 999 mls/hr EKG [EKG] Stat Ther 03/18/19 12:11 Draft Result Diagrams: 03/18/19 11:10 03/18/19 11:10 - EKG 1 Time of EKG reading by physician:: 12:16 EKG Read and Signed by:: Jay Good EKG Interpretation (*Must complete 3 of following elements*): Normal (Borderline) Rate: 51 Rhythm: Sinus preston with marked sinus arrhythmia with occasional PVCs Fleischmanns: normal QRS: PVC's, other (low voltage QRS) MS Interval: prolonged ST Wave: normal - XRAY 1 XRAY Study: Lumbar Spine Impression: Abnormal (COMMENT: There is curvature of the lumbar spine with convexity to the right. The pedicles appear to be intact. There is multilevel degenerative disc disease with vacuum disc phenomenon at L3-4, L4-5 and L5-S1. There is an old compression fracture of the upper endplate of L1 which was also present on 10/25/2018. There is no evidence of acute fracture or subluxation. There are gallstones. There is calcification in the abdominal aorta. IMPRESSION: No evidence of acute bony abnormality. Cholelithiasis. Scoliosis and degenerative disc disease. Electronically signed by Eduardo De Santiago 03/18/2019 12:00 PM) - CT/MRI 1 CT Study: Head Impression: Normal (COMMENT: There is generalized cerebral atrophy. This has not changed significantly since 12/25/2018. There has been previous frontal craniotomy. There is no evidence of bleed, mass effect, or abnormal extra-axial fluid collection. There is enlargement of the pituitary which was also present at the time the previous study. The visualized paranasal sinuses are clear. The calvarium is otherwise intact. IMPRESSION: Stable CT of the head. E lectronically signed by Eduardo De Santiago 03/18/2019 11:58 AM) - CONSULTS/PCP/HOSPITALIST Notification #1 *Consult/PCP/Hospitalist*: Dr. Christine Time Discussed: 12:29 Consult Disposition: Admit Departure - Departure Date of Disposition Decision: 03/18/19 Time of Disposition Decision: 12:12 DIAGNOSIS: Frequent falls, Hyponatremia Disposition: ADMITTED INPATIENT 09 Certified Medical Emergency: Emergent Condition: Stable Referrals and Follow-Ups: Zach Feldman MD [Primary Care Provider] - Discharge Education: Steps to Quit Smoking, [id number] - Critical Care Note This patient required my direct & personal management of CC.: No Attestation - Physician/ HORTENCIA Attestation Patient care was provided by Advanced Practice Provider:: Yes Advanced Practice Provider:: Rubi Blank Advanced Practice Provider documentation review:: The Mid-level provider documentation, treatment plan and medical decision making was reviewed by the physician who agrees with all treatment and medical decision making by the MLP. The physician spent face to face time with patient:: Yes Advanced Practice Provider documentation review:: Supervising physician onsite and consulted in the evaluation and care of this patient. The physician did have a face to face encounter with the patient. This chart was documented by the indicated scribe, (Ivy Kenney Scribe) and accurately reflects the services I performed and decisions made by , Rubi Blank PA, as attested by the provider's signature.
[2019-03-18 12:54] LABS: BILIRUBIN URINE NEGATIVE (NEGATIVE); BLOOD URINE NEGATIVE (NEGATIVE); GLUCOSE URINE NEGATIVE (NEGATIVE); KETONE URINE NEGATIVE (NEGATIVE); LEUKOCYTES URINE TRACE (NEGATIVE); NITRITE URINE NEGATIVE (NEGATIVE); PROTEIN URINE NEGATIVE (NEGATIVE); SP GRAVITY URINE 1.005; UROBILINOGEN URINE NORMAL
[2019-03-18 12:55] LABS: CLARITY CLEAR (CLEAR); COLOR YELLOW
[2019-03-18 12:57] LABS: URINE EPITHELIAL CELLS <10 /HPF (<10); URINE SOURCE CLEAN CATCH
[2019-03-18] MEDS ORDERED: ZOFRAN IV PRN (14:08)
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
--- NOTE | 2019-03-18 20:10 | HISTORY AND PHYSICAL ---
ADDENDUM - HISTORY AND PHYSICAL: Patient seen and examined by myself. Full note dictated and discussed with nurse practitioner. Patient presented to the hospital with back pain and generalized fatigue. He notes this happened each time that he has a low sodium. Sodium level was checked in the ER, was 120. He is currently awake, alert. He is in no respiratory distress. He is pleasant to talk with. We will admit him to the hospital, place him on IV fluids tonight. Recheck his sodium in the a.m. and treat accordingly. cc: Dae Christine MD
[2019-03-18 20:15] LABS: ESTIMATED GFR > 60
[2019-03-18 20:23] LABS: AGAP 12; BUN 7 mg/dL (8-22); CALCIUM 8.4 mg/dL (8.8-10.2); CHLORIDE 85 mmol/L (98-107); COSMO 238; CREATININE 0.5 mg/dL (0.7-1.2); GLUCOSE 87 mg/dL (70-104); SODIUM 120 mmol/L (136-145); TCO2 21 mmol/L (25-35)
[2019-03-18] MEDS ORDERED: NS 1,000 ML IV SCH (20:30)
[2019-03-18 23:19] LABS: ESTIMATED GFR > 60
[2019-03-18 23:24] LABS: AGAP 9; BUN 7 mg/dL (8-22); CALCIUM 8.2 mg/dL (8.8-10.2); CHLORIDE 87 mmol/L (98-107); COSMO 240; CREATININE 0.5 mg/dL (0.7-1.2); GLUCOSE 89 mg/dL (70-104); TCO2 25 mmol/L (25-35)
[2019-03-18 23:26] LABS: SODIUM 120 mmol/L (136-145)
[2019-03-19 06:03] LABS: HEMOGLOBIN 9.8 g/dL (14.0-18.0); MCH 29.3 PG (27-31); MCV 83.8 FL (81-99); MPV 8.6 FL (7.4-10.4); RBC 3.34 XMIL (4.7-6.1); RDW 12.3 % (11.5-14.5); WBC 6.93 X1000 (4.8-10.8)
[2019-03-19 06:10] LABS: ESTIMATED GFR > 60
[2019-03-19 06:13] LABS: AGAP 7; BUN 7 mg/dL (8-22); CHLORIDE 89 mmol/L (98-107); COSMO 240; CREATININE 0.5 mg/dL (0.7-1.2); GLUCOSE 87 mg/dL (70-104); TCO2 24 mmol/L (25-35)
[2019-03-19 06:16] LABS: SODIUM 120 mmol/L (136-145)
--- NOTE | 2019-03-19 12:20 | PROGRESS NOTE ---
DATE: 03/19/2019 SUBJECTIVE: Patient has no major complaints. OBJECTIVE: Vitals: Blood pressure is 153/64, heart rate of 46, respiratory rate 18, temperature 98.2, 99% on 2 L. Cardiovascular: Regular rate and rhythm. Pulmonary: Bilateral breath sounds clear to auscultation. GI: Soft, nontender, nondistended. Bowel sounds are positive. Extremity: No clubbing or cyanosis. Lymphatic: No peripheral edema. He does not look volume overloaded. He looks pretty normal actually. LABORATORY DATA: 1. White count is 6, hemoglobin and hematocrit 9 and 28, platelets 298,000. His sodium is 120 and it has not changed. It has been that way since yesterday morning. He has been on normal saline, but I do not think that is going to help us out too much here. ASSESSMENT AND PLAN: 1. 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 Hyponatremia has been an issue in the past. He does have a history of subdural bleeds and that may have triggered it. In any case, he does have symptomatic hyponatremia, frequent falls, hyponatremia. We will pursue fluid restriction now that he has an SIADH pattern and evaluate for anything else and we will continue to follow closely. We will continue fluid restriction and monitor. 2. Hypertension. We will continue his regular medications and follow. 3. Dyslipidemia. Continue his atorvastatin and monitor. 4. History of dementia. Appears to be fairly well controlled. I think he has had issues with this before though where he kind of got confused. He is not on particularly any medications that would cause any issues as far as hyponatremia, so I am not quite sure. We will evaluate his mental status and follow, work on trying to get him up, too, and monitor closely. cc: Amari Smith MD
[2019-03-19] MEDS: TYLENOL PO PRN (15:04)
[2019-03-19] MEDS: LIDODERM TOP SCH (17:04)
[2019-03-19 18:54] LABS: AGAP 7; BUN 7 mg/dL (8-22); CALCIUM 8.3 mg/dL (8.8-10.2); CHLORIDE 88 mmol/L (98-107); COSMO 240; CREATININE 0.5 mg/dL (0.7-1.2); ESTIMATED GFR > 60; GLUCOSE 96 mg/dL (70-104); POTASSIUM 4.6 mmol/L (3.5-5.1); SODIUM 120 mmol/L (136-145); TCO2 26 mmol/L (25-35)
[2019-03-19 20:20] LABS: OCCULT BLOOD 1 NEGATIVE (NEGATIVE)
[2019-03-19] MEDS: SEROQUEL PO SCH (21:53)
[2019-03-19] MEDS: ARICEPT PO SCH (21:53)
[2019-03-19] MEDS: SODIUM CHLORIDE PO SCH (21:53)
[2019-03-19] MEDS: LIPITOR PO SCH (21:53)
[2019-03-19] MEDS: FLOMAX PO SCH (21:53)
[2019-03-19] MEDS: XALATAN 0.005% OPH SOLN BOTH EYES SCH (21:54)
[2019-03-20] MEDS: SYNTHROID PO SCH (05:22)
[2019-03-20] MEDS: PRILOSEC PO SCH (05:22)
[2019-03-20 07:10] LABS: BASO# 0.02 X1000 (0.0-0.2); BASO% 0.3 % (0.0-0.8); EOS# 0.21 X1000 (0.0-0.7); EOS% 3.3 % (0.0-10.0); HEMATOCRIT 26.1 % (42.0-52.0); HEMOGLOBIN 9.2 g/dL (14.0-18.0); IMM GRAN# 0.01 X1000 (0.0-0.04); IMM GRAN% 0.2 % (0.0-0.5); LYMPH# 1.25 X1000 (1.2-3.4); LYMPH% 19.8 % (20.5-51.1); MCH 29.8 PG (27-31); MCHC 35.2 g/dL (33-37); MCV 84.5 FL (81-99); MONO# 0.47 X1000 (0.11-0.59); MONO% 7.5 % (1.7-9.3); MPV 8.4 FL (7.4-10.4); NEUT# 4.34 X1000 (1.4-6.5); NEUT% 68.9 % (42.2-75.2); PLT 265 X1000 (130-400); RBC 3.09 XMIL (4.7-6.1); RDW 12.4 % (11.5-14.5)
[2019-03-20 07:31] LABS: AGAP 8; BUN 7 mg/dL (8-22); CALCIUM 8.2 mg/dL (8.8-10.2); CHLORIDE 90 mmol/L (98-107); COSMO 242; CREATININE 0.4 mg/dL (0.7-1.2); ESTIMATED GFR > 60; GLUCOSE 91 mg/dL (70-104); POTASSIUM 3.8 mmol/L (3.5-5.1); SODIUM 121 mmol/L (136-145); TCO2 23 mmol/L (25-35)
[2019-03-20] MEDS: PROSCAR PO SCH (09:41)
[2019-03-20] MEDS: VITAMIN C PO SCH (09:41)
[2019-03-20] MEDS: CULTURELLE PO SCH (09:41)
[2019-03-20] MEDS: SODIUM CHLORIDE PO SCH ×2 (09:41→20:42)
[2019-03-20] MEDS: FERROUS SULFATE PO SCH (09:41)
[2019-03-20] MEDS: LIDODERM TOP SCH (09:42)
[2019-03-20] MEDS: TYLENOL PO PRN (14:13)
--- NOTE | 2019-03-20 15:04 | PROGRESS NOTE ---
DATE: 03/20/2019 SUBJECTIVE: He seems a little bit more somnolent this morning than before. His family members are present, though or his caregiver I believe. OBJECTIVE: Vital Signs: Blood pressure 140/57, heart rate of 49, respiratory rate 16, temperature 98 degrees. Cardiovascular: Regular rate and rhythm. Pulmonary: Bilateral breath sounds. Clear to auscultation. Gastrointestinal: Soft, nontender, nondistended. Bowel sounds are positive. LABORATORY DATA: Sodium is up to 121, which is the biggest jump we have had since he has been here. Laboratory data other than that: Hemoglobin and hematocrit 9 and 26, that seems pretty stable. He has had a little bit of a drop, but nothing major. PROBLEM LIST: 1. 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 He has had a subdural hematoma previously. He had a head CT on admission which showed cerebral atrophy, previous frontal craniotomy. No bleeding. There is enlargement of the pituitary, but that has been there previously, so I am not entirely sure. 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 I guess it is possible that this may be a pituitary adenoma, that is an unusual cause of SIADH, but possible, I suppose. But in any case, we will continue fluid restrictions, salt supplementation. He may need Samsca. The last time he was here he went up to 134. I am not entirely sure that improved with other treatments, but we may end up needing to do that. 2. Constipation with abdominal distention. I am going to get a bowel regimen and follow. If not improved, we will get plain films. 3. Dementia. Continue his regular medications. Seems pretty well controlled. DISPOSITION: Pending cardiac workup, resolution of his hyponatremia, and we will follow closely. cc: Amari Smith MD
[2019-03-20 17:11] LABS: ESTIMATED GFR > 60
[2019-03-20 17:36] LABS: AGAP 9; BUN 8 mg/dL (8-22); CALCIUM 8.2 mg/dL (8.8-10.2); CHLORIDE 85 mmol/L (98-107); COSMO 237; CREATININE 0.6 mg/dL (0.7-1.2); GLUCOSE 98 mg/dL (70-104); POTASSIUM 4.3 mmol/L (3.5-5.1); SODIUM 118 mmol/L (136-145); TCO2 24 mmol/L (25-35)
[2019-03-20] MEDS: MIRALAX PO SCH (18:58)
[2019-03-20] MEDS: VENTOLIN HFA INH PRN (19:23)
[2019-03-20] MEDS ORDERED: NORCO-5 PO PRN (19:59)
[2019-03-20] MEDS: XALATAN 0.005% OPH SOLN BOTH EYES SCH (20:41)
[2019-03-20] MEDS: LACTULOSE PO SCH (20:41)
[2019-03-20] MEDS: SEROQUEL PO SCH (20:41)
[2019-03-20] MEDS: LIPITOR PO SCH (20:41)
[2019-03-20] MEDS: ARICEPT PO SCH (20:42)
[2019-03-20] MEDS: FLOMAX PO SCH (20:42)
--- NOTE | 2019-03-20 21:06 | Diag Imaging Result Doc PS360 ---
EXAM: CHEST-PORTABLE HISTORY: wheezing, cough TECHNIQUE: Chest single view COMPARISON: 03/14/2019 FINDINGS: The lungs are well expanded. The heart is mildly enlarged. The vessels are not distended. There are no infiltrates. No effusion identified. IMPRESSION: Mild cardiomegaly. Electronically signed by Pradeep Morales 03/20/2019 9:04 PM
[2019-03-21] MEDS: PRILOSEC PO SCH (05:01)
[2019-03-21] MEDS: SYNTHROID PO SCH (05:01)
[2019-03-21 06:40] LABS: BASO# 0.01 X1000 (0.0-0.2); BASO% 0.2 % (0.0-0.8); EOS# 0.16 X1000 (0.0-0.7); EOS% 2.5 % (0.0-10.0); HEMATOCRIT 28.1 % (42.0-52.0); HEMOGLOBIN 10.1 g/dL (14.0-18.0); IMM GRAN# 0.02 X1000 (0.0-0.04); IMM GRAN% 0.3 % (0.0-0.5); LYMPH# 1.03 X1000 (1.2-3.4); LYMPH% 15.9 % (20.5-51.1); MCH 30.1 PG (27-31); MCHC 35.9 g/dL (33-37); MCV 83.9 FL (81-99); MONO% 6.2 % (1.7-9.3); MPV 8.7 FL (7.4-10.4); NEUT# 4.85 X1000 (1.4-6.5); NEUT% 74.9 % (42.2-75.2); PLT 309 X1000 (130-400); RBC 3.35 XMIL (4.7-6.1); RDW 12.5 % (11.5-14.5); WBC 6.47 X1000 (4.8-10.8)
[2019-03-21 06:47] LABS: ESTIMATED GFR > 60
[2019-03-21 06:54] LABS: AGAP 11; BUN 7 mg/dL (8-22); CALCIUM 8.2 mg/dL (8.8-10.2); CHLORIDE 88 mmol/L (98-107); COSMO 246; CREATININE 0.5 mg/dL (0.7-1.2); GLUCOSE 101 mg/dL (70-104); POTASSIUM 3.9 mmol/L (3.5-5.1); SODIUM 123 mmol/L (136-145); TCO2 25 mmol/L (25-35)
[2019-03-21] MEDS: DUONEB (A & A) INH PRN ×4 (07:56→19:44)
[2019-03-21] MEDS: LIDODERM TOP SCH (09:21)
[2019-03-21] MEDS: SODIUM CHLORIDE PO SCH (09:21)
[2019-03-21] MEDS: VITAMIN C PO SCH (09:21)
[2019-03-21] MEDS: CULTURELLE PO SCH (09:21)
[2019-03-21] MEDS: PROSCAR PO SCH (09:21)
[2019-03-21] MEDS: MIRALAX PO SCH (09:21)
[2019-03-21] MEDS: LACTULOSE PO SCH ×2 (09:21→22:51)
[2019-03-21] MEDS: FERROUS SULFATE PO SCH (09:21)
[2019-03-21] MEDS ORDERED: SAMSCA PO ONE ×3 (09:52→22:10)
[2019-03-21] MEDS ORDERED: D5W 1,000 ML IV SCH ×2 (10:00→18:29)
[2019-03-21 13:02] LABS: ESTIMATED GFR > 60
[2019-03-21 13:23] LABS: AGAP 10; BUN 7 mg/dL (8-22); CHLORIDE 87 mmol/L (98-107); COSMO 243; CREATININE 0.6 mg/dL (0.7-1.2); GLUCOSE 113 mg/dL (70-104); POTASSIUM 3.9 mmol/L (3.5-5.1); SODIUM 121 mmol/L (136-145); TCO2 24 mmol/L (25-35)
--- NOTE | 2019-03-21 15:03 | Diag Imaging Result Doc PS360 ---
EXAM: ABDOMEN FLAT/UPRIGHT HISTORY: pain TECHNIQUE: Flat and upright two views COMPARISON: None. FINDINGS: No free air beneath the diaphragm. Nonspecific bowel gas pattern. The bowel loops are not dilated. No organomegaly. Mild scoliosis with moderate degenerative changes. IMPRESSION: No acute abnormality. Electronically signed by Pradeep Morales 03/21/2019 3:01 PM
--- NOTE | 2019-03-21 15:13 | PROGRESS NOTE ---
DATE: 03/21/2019 SUBJECTIVE: He is complaining of cough this morning. He seems okay though he is not quite as sedated as he has been before. OBJECTIVE: Vital Signs: Blood pressure is 110/54, heart rate of 56, respiratory rate of 16, temperature 97.5 degrees, 96% on room air. Cardiovascular: Regular rate and rhythm. Pulmonary: Bilateral breath sounds clear to auscultation. Gastrointestinal: Soft, nontender, nondistended. Bowel sounds are positive. LABORATORY DATA: White count 6, hemoglobin and hematocrit 10 and 28, platelets 309,000. Sodium 121. PROBLEM LIST: 1. 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 Still sodium is not improved. I have initiated Samsca and D5 because I do not want him to overcorrect, which is a constant issue with Samsca. We will liberate his fluid restriction. 2. Dementia. Appears to be stable on current medications. DISPOSITION: Pending his clinical status, if he is stable, we will start to get PT to work with him a bit. In any case, patient is stabilizing. We will continue to follow. So we will see how things go. cc: Amari Smith MD
[2019-03-21 16:08] LABS: ESTIMATED GFR > 60
[2019-03-21 16:15] LABS: AGAP 11; BUN 7 mg/dL (8-22); CALCIUM 7.9 mg/dL (8.8-10.2); CHLORIDE 87 mmol/L (98-107); COSMO 245; CREATININE 0.6 mg/dL (0.7-1.2); GLUCOSE 123 mg/dL (70-104); POTASSIUM 3.7 mmol/L (3.5-5.1); SODIUM 122 mmol/L (136-145); TCO2 24 mmol/L (25-35)
[2019-03-21 20:35] LABS: ESTIMATED GFR > 60
[2019-03-21 20:41] LABS: AGAP 12; CHLORIDE 87 mmol/L (98-107); POTASSIUM 3.7 mmol/L (3.5-5.1); SODIUM 122 mmol/L (136-145); TCO2 24 mmol/L (25-35)
[2019-03-21 20:42] LABS: BUN 6 mg/dL (8-22); CALCIUM 8.2 mg/dL (8.8-10.2); COSMO 245; CREATININE 0.5 mg/dL (0.7-1.2); GLUCOSE 133 mg/dL (70-104)
[2019-03-21] MEDS: XALATAN 0.005% OPH SOLN BOTH EYES SCH (22:50)
[2019-03-21] MEDS: VICON-C PO SCH (22:50)
[2019-03-21] MEDS: LIPITOR PO SCH (22:51)
[2019-03-21] MEDS: SEROQUEL PO SCH (22:51)
[2019-03-21] MEDS: ARICEPT PO SCH (22:51)
[2019-03-21] MEDS: FLOMAX PO SCH (22:51)
[2019-03-21] MEDS: VITAMIN E PO SCH (22:56)
[2019-03-22 01:23] LABS: ESTIMATED GFR > 60
[2019-03-22 01:27] LABS: AGAP 14; BUN 6 mg/dL (8-22); CALCIUM 8.4 mg/dL (8.8-10.2); CHLORIDE 90 mmol/L (98-107); COSMO 246; CREATININE 0.5 mg/dL (0.7-1.2); GLUCOSE 106 mg/dL (70-104); POTASSIUM 3.9 mmol/L (3.5-5.1); SODIUM 123 mmol/L (136-145); TCO2 20 mmol/L (25-35)
[2019-03-22] MEDS: SYNTHROID PO SCH (06:04)
[2019-03-22] MEDS: PRILOSEC PO SCH (06:04)
[2019-03-22] MEDS: DUONEB (A & A) INH PRN ×4 (07:18→19:33)
[2019-03-22 07:41] LABS: BASO# 0.02 X1000 (0.0-0.2); BASO% 0.3 % (0.0-0.8); EOS# 0.13 X1000 (0.0-0.7); EOS% 1.7 % (0.0-10.0); HEMATOCRIT 30.9 % (42.0-52.0); HEMOGLOBIN 10.7 g/dL (14.0-18.0); IMM GRAN# 0.02 X1000 (0.0-0.04); IMM GRAN% 0.3 % (0.0-0.5); LYMPH# 1.07 X1000 (1.2-3.4); LYMPH% 13.6 % (20.5-51.1); MCH 29.4 PG (27-31); MCHC 34.6 g/dL (33-37); MCV 84.9 FL (81-99); MONO# 0.65 X1000 (0.11-0.59); MONO% 8.3 % (1.7-9.3); MPV 8.7 FL (7.4-10.4); NEUT# 5.96 X1000 (1.4-6.5); NEUT% 75.8 % (42.2-75.2); PLT 325 X1000 (130-400); RBC 3.64 XMIL (4.7-6.1); RDW 12.8 % (11.5-14.5); WBC 7.85 X1000 (4.8-10.8)
[2019-03-22 08:03] LABS: AGAP 12; BUN 6 mg/dL (8-22); CALCIUM 9.1 mg/dL (8.8-10.2); CHLORIDE 94 mmol/L (98-107); COSMO 259; CREATININE 0.6 mg/dL (0.7-1.2); ESTIMATED GFR > 60; GLUCOSE 102 mg/dL (70-104); POTASSIUM 4.1 mmol/L (3.5-5.1); SODIUM 130 mmol/L (136-145); TCO2 24 mmol/L (25-35)
[2019-03-22] MEDS ORDERED: VITAMIN C PO SCH (09:00)
[2019-03-22] MEDS ORDERED: FISH OIL CONCENTRATE PO SCH (09:00)
[2019-03-22] MEDS ORDERED: D5W 1,000 ML IV SCH (09:15)
[2019-03-22] MEDS: CULTURELLE PO SCH (09:35)
[2019-03-22] MEDS: PROSCAR PO SCH (09:36)
[2019-03-22] MEDS: FERROUS SULFATE PO SCH (09:36)
[2019-03-22] MEDS: VITAMIN C PO SCH (09:38)
[2019-03-22] MEDS: LIDODERM TOP SCH (09:39)
[2019-03-22] MEDS: LACTULOSE PO SCH ×2 (09:39→20:30)
[2019-03-22] MEDS: VITAMIN D PO SCH (09:40)
[2019-03-22] MEDS: MIRALAX PO SCH (09:40)
[2019-03-22 12:23] LABS: BILIRUBIN URINE NEGATIVE (NEGATIVE); BLOOD URINE NEGATIVE (NEGATIVE); CLARITY CLEAR (CLEAR); COLOR YELLOW; GLUCOSE URINE NEGATIVE (NEGATIVE); KETONE URINE NEGATIVE (NEGATIVE); LEUKOCYTES URINE NEGATIVE (NEGATIVE); NITRITE URINE NEGATIVE (NEGATIVE); PROTEIN URINE NEGATIVE (NEGATIVE); UROBILINOGEN URINE NORMAL
[2019-03-22 12:28] LABS: URINE EPITHELIAL CELLS <10 /HPF (<10); URINE SOURCE CATH; URINE WBC <10 /HPF (<10)
[2019-03-22 12:50] LABS: AGAP 11; BUN 7 mg/dL (8-22); CHLORIDE 96 mmol/L (98-107); COSMO 266; CREATININE 0.7 mg/dL (0.7-1.2); ESTIMATED GFR > 60; GLUCOSE 133 mg/dL (70-104); POTASSIUM 3.9 mmol/L (3.5-5.1); SODIUM 133 mmol/L (136-145); TCO2 26 mmol/L (25-35)
--- NOTE | 2019-03-22 16:49 | PROGRESS NOTE ---
DATE: 03/22/2019 SUBJECTIVE: He seems okay. No major complaints. OBJECTIVE: Vital signs: Blood pressure is 132/68, heart rate 95, respiratory rate 16, temperature 94 degrees, 97% on room air. Cardiovascular: Regular rate and rhythm. Pulmonary: Bilateral breath sounds clear to auscultation. Gastrointestinal: Soft, nontender, nondistended. Bowel sounds are positive. LABORATORY DATA: His sodium finally has improved; it is up to 133. Fine. I do not think there are any other pertinent labs. His urine was unremarkable. PROBLEM LIST: 1. Hyponatremia, possibly due to syndrome of inappropriate antidiuretic hormone. He did get a dose of Samsca, and his sodium is finally improved, went from 123 yesterday to 130 this morning. It has continued to climb, unfortunately, a little more, but he is up to 133. I am just going to kind of watch him. He is on D5 just so he does not overcorrect, which he has corrected a little quickly since yesterday evening, but the last 24 hours, he has not corrected very quickly, so overall on average he has improved. 2. Dementia. He is stable on current medications. 3. Urinary retention. He is on finasteride. I cannot tell if he is on Flomax but I will start some Flomax, and then we had to put a Isaac in for urinary retention. 4. Disposition pending his clinical status. I think by tomorrow, though, he should be stable enough for discharge. I just do not know if we are looking at rehab opportunities. cc: Amari Smith MD
[2019-03-22 18:14] LABS: AGAP 12; BUN 7 mg/dL (8-22); CALCIUM 8.9 mg/dL (8.8-10.2); CHLORIDE 100 mmol/L (98-107); COSMO 270; CREATININE 0.6 mg/dL (0.7-1.2); ESTIMATED GFR > 60; GLUCOSE 135 mg/dL (70-104); POTASSIUM 4.1 mmol/L (3.5-5.1); SODIUM 135 mmol/L (136-145); TCO2 24 mmol/L (25-35)
[2019-03-22] MEDS ORDERED: GEODON IM PRN (18:46)
[2019-03-22] MEDS ORDERED: STERILE WATER INJ. INJ PRN (18:46)
[2019-03-22] MEDS: FLOMAX PO SCH (20:30)
[2019-03-22] MEDS: VITAMIN E PO SCH (20:30)
[2019-03-22] MEDS: VICON-C PO SCH (20:30)
[2019-03-22] MEDS: LIPITOR PO SCH (20:30)
[2019-03-22] MEDS: XALATAN 0.005% OPH SOLN BOTH EYES SCH (20:30)
[2019-03-22] MEDS: SEROQUEL PO SCH (20:30)
[2019-03-22] MEDS: ARICEPT PO SCH (20:31)
[2019-03-23] MEDS: SYNTHROID PO SCH (06:18)
[2019-03-23] MEDS: PRILOSEC PO SCH (06:18)
[2019-03-23 07:17] LABS: BASO# 0.02 X1000 (0.0-0.2); BASO% 0.3 % (0.0-0.8); EOS# 0.16 X1000 (0.0-0.7); HEMATOCRIT 29.5 % (42.0-52.0); HEMOGLOBIN 9.9 g/dL (14.0-18.0); IMM GRAN# 0.02 X1000 (0.0-0.04); IMM GRAN% 0.3 % (0.0-0.5); LYMPH# 0.91 X1000 (1.2-3.4); LYMPH% 11.6 % (20.5-51.1); MCH 29.4 PG (27-31); MCHC 33.6 g/dL (33-37); MCV 87.5 FL (81-99); MONO# 0.69 X1000 (0.11-0.59); MONO% 8.8 % (1.7-9.3); MPV 8.7 FL (7.4-10.4); NEUT# 6.07 X1000 (1.4-6.5); PLT 327 X1000 (130-400); RBC 3.37 XMIL (4.7-6.1); RDW 13.1 % (11.5-14.5); WBC 7.87 X1000 (4.8-10.8)
[2019-03-23] MEDS: VENTOLIN HFA INH PRN (07:30)
[2019-03-23 07:37] LABS: AGAP 11; BUN 10 mg/dL (8-22); CALCIUM 8.9 mg/dL (8.8-10.2); CHLORIDE 100 mmol/L (98-107); COSMO 272; CREATININE 0.7 mg/dL (0.7-1.2); ESTIMATED GFR > 60; GLUCOSE 109 mg/dL (70-104); POTASSIUM 3.9 mmol/L (3.5-5.1); SODIUM 136 mmol/L (136-145); TCO2 25 mmol/L (25-35)
[2019-03-23] MEDS: CULTURELLE PO SCH (10:31)
[2019-03-23] MEDS: LACTULOSE PO SCH ×2 (10:31→21:33)
[2019-03-23] MEDS: FISH OIL CONCENTRATE PO SCH (10:31)
[2019-03-23] MEDS: FERROUS SULFATE PO SCH (10:31)
[2019-03-23] MEDS: PROSCAR PO SCH (10:31)
[2019-03-23] MEDS: LIDODERM TOP SCH (10:31)
[2019-03-23] MEDS: VITAMIN C PO SCH (10:32)
[2019-03-23] MEDS: VITAMIN D PO SCH (10:32)
[2019-03-23] MEDS: MIRALAX PO SCH (10:32)
--- NOTE | 2019-03-23 13:08 | PROGRESS NOTE ---
DATE: 03/23/2019 OBJECTIVE: Blood pressure is 116/63, heart rate 74, respiratory rate 20, and temperature 97.9 degrees and 94% on room air.Cardiovascular: Regular rate and rhythm. Pulmonary: Bilateral breath sounds. Clear to auscultation. GI: Soft, nontender, and nondistended. Bowel sounds are positive. LABORATORY DATA: Her white count is 7, hemoglobin and hematocrit 9.9 and 29, platelets 327,000. Basic was normal. PROBLEM LIST: 1. Hyponatremia, possible SIADH. Sodium has finally corrected. It has corrected rather rapidly over the last 24 hours but compared to yesterday it was 135 and was 136 today. The day before was 122 with peak of 135. She was 123 and then that morning had come up to 130, which is only 7 mEq. Then from the to , it has gone up 6 mEq. It has not corrected too rapidly, although today he seems a little bit more sedated, but I think that is related to medications he got last night for agitation because he does tend to have owning now. He is on Seroquel which I think I may bump up a little bit, and see if that may help his disposition. 2. Dementia. I am going to bump up the Seroquel. 3. Urinary retention. He is on finasteride and Flomax. DISPOSITION: I think he probably will need rehab but I do not know. I have not seen family to discuss the case with them to see if that is okay. cc: Amari Smith MD
--- NOTE | 2019-03-23 17:44 | Diag Imaging Result Doc PS360 ---
EXAM: CT HEAD W/O CONTRAST HISTORY: Altered Mental Status TECHNIQUE: CT head without contrast COMPARISON: 03/18/2019 FINDINGS: No parenchymal hemorrhage. No epidural or subdural hematoma. There are chronic subdural fluid collections. No subarachnoid hemorrhage. Prior craniotomy. Marked atrophy. There are chronic microvascular ischemic changes. No mass identified on this noncontrasted exam. No hydrocephalus. No sinus opacification. IMPRESSION: 1.No hemorrhage 2.Marked atrophy with chronic subdural fluid collections. No change. 3.Prior craniotomy. 4.Chronic microvascular ischemic changes. This exam was performed using automated exposure control, adjustment of mA or kV according to patient size, and/or use of iterative reconstruction technique. Electronically signed by Pradeep Morales 03/23/2019 5:41 PM
[2019-03-23] MEDS: SEROQUEL PO SCH (21:33)
[2019-03-23] MEDS: FLOMAX PO SCH (21:33)
[2019-03-23] MEDS: LIPITOR PO SCH (21:33)
[2019-03-23] MEDS: VICON-C PO SCH (21:34)
[2019-03-23] MEDS: VITAMIN E PO SCH (21:34)
[2019-03-23] MEDS: ARICEPT PO SCH (21:34)
[2019-03-23] MEDS: XALATAN 0.005% OPH SOLN BOTH EYES SCH (21:35)
[2019-03-24] MEDS: SYNTHROID PO SCH (05:36)
[2019-03-24] MEDS: PRILOSEC PO SCH (05:36)
[2019-03-24] MEDS: DUONEB (A & A) INH PRN ×2 (07:34→12:01)
[2019-03-24 08:03] LABS: BASO# 0.02 X1000 (0.0-0.2); BASO% 0.2 % (0.0-0.8); EOS# 0.27 X1000 (0.0-0.7); EOS% 2.6 % (0.0-10.0); HEMATOCRIT 30.7 % (42.0-52.0); HEMOGLOBIN 10.2 g/dL (14.0-18.0); IMM GRAN# 0.01 X1000 (0.0-0.04); IMM GRAN% 0.1 % (0.0-0.5); LYMPH# 1.15 X1000 (1.2-3.4); LYMPH% 11.1 % (20.5-51.1); MCH 29.7 PG (27-31); MCHC 33.2 g/dL (33-37); MCV 89.5 FL (81-99); MONO# 0.91 X1000 (0.11-0.59); MONO% 8.8 % (1.7-9.3); MPV 8.9 FL (7.4-10.4); NEUT# 8.01 X1000 (1.4-6.5); NEUT% 77.2 % (42.2-75.2); PLT 356 X1000 (130-400); RBC 3.43 XMIL (4.7-6.1); RDW 13.6 % (11.5-14.5); WBC 10.37 X1000 (4.8-10.8)
[2019-03-24 08:29] LABS: AGAP 10; BUN 13 mg/dL (8-22); CALCIUM 8.6 mg/dL (8.8-10.2); CHLORIDE 100 mmol/L (98-107); COSMO 270; CREATININE 0.7 mg/dL (0.7-1.2); ESTIMATED GFR > 60; GLUCOSE 96 mg/dL (70-104); SODIUM 135 mmol/L (136-145); TCO2 24 mmol/L (25-35)
[2019-03-24] MEDS: LIDODERM TOP SCH (09:52)
[2019-03-24] MEDS: VITAMIN D PO SCH (09:53)
[2019-03-24] MEDS: PROSCAR PO SCH (09:53)
[2019-03-24] MEDS: FERROUS SULFATE PO SCH (09:53)
[2019-03-24] MEDS: CULTURELLE PO SCH (09:53)
[2019-03-24] MEDS: FISH OIL CONCENTRATE PO SCH (09:53)
[2019-03-24] MEDS: MIRALAX PO SCH (09:53)
[2019-03-24] MEDS: LACTULOSE PO SCH ×2 (09:53→22:41)
[2019-03-24] MEDS: VITAMIN C PO SCH (09:53)
[2019-03-24] MEDS: SEROQUEL PO SCH (22:40)
[2019-03-24] MEDS: ARICEPT PO SCH (22:41)
[2019-03-24] MEDS: LIPITOR PO SCH (22:41)
[2019-03-24] MEDS: VITAMIN E PO SCH (22:41)
[2019-03-24] MEDS: FLOMAX PO SCH (22:41)
[2019-03-24] MEDS: XALATAN 0.005% OPH SOLN BOTH EYES SCH (22:42)
[2019-03-24] MEDS: VICON-C PO SCH (22:42)
--- NOTE | 2019-03-25 04:34 | PROGRESS NOTE ---
DATE: 03/24/2019 SUBJECTIVE: Patient has no major complaints. OBJECTIVE: Vital signs: Blood pressure is 127/66, heart rate of 83, respiratory rate of 20, temperature 97.6 degrees. 97% on room air. Cardiovascular: Regular rate and rhythm. Pulmonary: Bilateral breath sounds. Clear to auscultation. Gastrointestinal: Soft, nontender, nondistended. Bowel sounds are positive. PROBLEM LIST: 1. 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 She seems to be doing okay. Will resume fluid restriction and follow. 2. Dementia. He seems pretty stable from my standpoint. I did go up on his Seroquel yesterday and seems to be doing okay. 3. Urinary retention. He is on Flomax and finasteride, so we will see how he is doing. DISPOSITION: His family has now acquiesced to the fact that he will need rehab. His daughter is concerned about his increasing level of confusion, which may be multifactorial, and I think he has got a lot of just plain dementia that is worsened since he is hospitalized. He is on a significant amount of medication, he is on Seroquel, he is on Aricept. He has persistent issues with hyponatremia. He has had a subdural hematoma. Family is concerned about stroke. Head CT is the only thing that we have there. 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 I just think he has got pretty significant dementia that they feel is not an issue, but he certainly has not had a new stroke, but he has got pretty significant ventriculomegaly, and he has got a lot of subdural volume loss, especially on the subdural side on the left, but there is no change in that. cc: Amari Smith MD
[2019-03-25] MEDS: SYNTHROID PO SCH (05:46)
[2019-03-25] MEDS: PRILOSEC PO SCH (05:46)
[2019-03-25 07:31] LABS: BASO# 0.03 X1000 (0.0-0.2); BASO% 0.3 % (0.0-0.8); EOS# 0.33 X1000 (0.0-0.7); EOS% 3.8 % (0.0-10.0); HEMATOCRIT 28.6 % (42.0-52.0); HEMOGLOBIN 9.4 g/dL (14.0-18.0); IMM GRAN# 0.01 X1000 (0.0-0.04); IMM GRAN% 0.1 % (0.0-0.5); LYMPH# 1.21 X1000 (1.2-3.4); MCH 29.2 PG (27-31); MCHC 32.9 g/dL (33-37); MCV 88.8 FL (81-99); MONO# 0.67 X1000 (0.11-0.59); MONO% 7.7 % (1.7-9.3); MPV 8.6 FL (7.4-10.4); NEUT# 6.42 X1000 (1.4-6.5); NEUT% 74.1 % (42.2-75.2); PLT 343 X1000 (130-400); RBC 3.22 XMIL (4.7-6.1); RDW 13.3 % (11.5-14.5); WBC 8.67 X1000 (4.8-10.8)
[2019-03-25 07:50] LABS: AGAP 10; BUN 12 mg/dL (8-22); CALCIUM 8.7 mg/dL (8.8-10.2); CHLORIDE 103 mmol/L (98-107); COSMO 275; CREATININE 0.6 mg/dL (0.7-1.2); ESTIMATED GFR > 60; GLUCOSE 93 mg/dL (70-104); POTASSIUM 3.9 mmol/L (3.5-5.1); SODIUM 138 mmol/L (136-145); TCO2 25 mmol/L (25-35)
[2019-03-25] MEDS: LACTULOSE PO SCH (10:15)
[2019-03-25] MEDS: VITAMIN C PO SCH (10:16)
[2019-03-25] MEDS: FLONASE NAS PRN (10:16)
[2019-03-25] MEDS: FERROUS SULFATE PO SCH (10:16)
[2019-03-25] MEDS: VITAMIN D PO SCH (10:16)
[2019-03-25] MEDS: PROSCAR PO SCH (10:17)
[2019-03-25] MEDS: CULTURELLE PO SCH (10:17)
[2019-03-25] MEDS: FISH OIL CONCENTRATE PO SCH (10:17)
[2019-03-25] MEDS: LIDODERM TOP SCH (10:17)
[2019-03-25] MEDS: MIRALAX PO SCH (10:17)
[2019-03-25] MEDS ORDERED: LACTULOSE PO PRN (11:57)
[2019-03-25] MEDS ORDERED: LEVAQUIN 500 MG/D5W 500 MG/100 ML IVPB IV SCH (12:00)
[2019-03-25] MEDS: DUONEB (A & A) INH PRN (13:44)
--- NOTE | 2019-03-25 13:46 | PROGRESS NOTE ---
DATE: 03/25/2019 SUBJECTIVE: The patient has no major complaints. He seems a little sleepy, but apparently, he is more clear according to the daughter, and he did wake up and respond appropriately. OBJECTIVE: Blood pressure 126/63, heart rate of 84, respiratory rate 16, temperature 97.6 degrees, 98% on room air.Cardiovascular: Regular rate and rhythm. Pulmonary: Bilateral breath sounds clear to auscultation. Gastrointestinal: Soft, nontender, nondistended. Bowel sounds are positive. Extremity: No clubbing or cyanosis. Lymphatic: No peripheral edema. Neurological: Nonfocal. LABORATORY DATA: Sodium is doing well at a level of 138. White count of 8, hemoglobin 9, hematocrit 28, platelets 343,000. PROBLEM LIST: 1. Hyponatremia. Seems to be doing okay. He is on fluid restriction. I may liberate him a bit, just because I just do not want him to get too dehydrated. 2. Dementia, which I think has progressed. I am not entirely sure the family is completely understanding of his decline. He has significant cerebral atrophy. That is not a change, but they are very surprised when he has episodes of confusion and I feel like that is just normal for him and it is not necessarily related to any acute stressor, but we will see how he does. 3. Bronchitis. Per the daughter, he only had a few days of Levaquin before it was discontinued. He sounds pretty clear to me. His chest x-ray previously has been clear, and his white count is normal. We will resume his Levaquin and just finish his course for another 4 days and we will see how he does. Apparently, he has tolerated Levaquin without difficulty in the past. DISPOSITION: Pending his clinical status. We will continue to monitor closely. cc: Amari Smith MD
[2019-03-25] MEDS: VICON-C PO SCH (22:34)
[2019-03-25] MEDS: LIPITOR PO SCH (22:34)
[2019-03-25] MEDS: VITAMIN E PO SCH (22:35)
[2019-03-25] MEDS: SEROQUEL PO SCH (22:35)
[2019-03-25] MEDS: FLOMAX PO SCH (22:35)
[2019-03-25] MEDS: ARICEPT PO SCH (22:36)
[2019-03-25] MEDS: XALATAN 0.005% OPH SOLN BOTH EYES SCH (22:37)
[2019-03-26] MEDS: SYNTHROID PO SCH (05:25)
[2019-03-26] MEDS: PRILOSEC PO SCH (06:24)
[2019-03-26 07:20] LABS: BASO# 0.03 X1000 (0.0-0.2); BASO% 0.3 % (0.0-0.8); EOS# 0.29 X1000 (0.0-0.7); EOS% 3.1 % (0.0-10.0); HEMATOCRIT 29.7 % (42.0-52.0); HEMOGLOBIN 9.7 g/dL (14.0-18.0); IMM GRAN# 0.02 X1000 (0.0-0.04); IMM GRAN% 0.2 % (0.0-0.5); LYMPH# 1.34 X1000 (1.2-3.4); LYMPH% 14.2 % (20.5-51.1); MCHC 32.7 g/dL (33-37); MCV 88.9 FL (81-99); MONO# 0.66 X1000 (0.11-0.59); MPV 8.7 FL (7.4-10.4); NEUT# 7.09 X1000 (1.4-6.5); NEUT% 75.2 % (42.2-75.2); PLT 369 X1000 (130-400); RBC 3.34 XMIL (4.7-6.1); RDW 13.4 % (11.5-14.5); WBC 9.43 X1000 (4.8-10.8)
[2019-03-26 07:32] LABS: AGAP 9; BUN 13 mg/dL (8-22); CALCIUM 8.7 mg/dL (8.8-10.2); CHLORIDE 102 mmol/L (98-107); COSMO 272; CREATININE 0.7 mg/dL (0.7-1.2); ESTIMATED GFR > 60; GLUCOSE 97 mg/dL (70-104); POTASSIUM 3.7 mmol/L (3.5-5.1); SODIUM 136 mmol/L (136-145); TCO2 25 mmol/L (25-35)
--- NOTE | 2019-03-26 07:53 | Diag Imaging Result Doc PS360 ---
EXAM: CHEST-1 VIEW HISTORY: pneumonia TECHNIQUE: Portable chest single view COMPARISON: 03/20/2019 FINDINGS: The lungs are well expanded. The heart is mildly prominent. The vessels are not distended. There are no infiltrates. No consolidation. No effusion identified. IMPRESSION: Mild cardiomegaly. Follow-up PA and lateral may be beneficial. Electronically signed by Pradeep Morales 03/26/2019 7:51 AM
[2019-03-26] MEDS ORDERED: LEVAQUIN 500 MG/D5W 500 MG/100 ML IVPB IV SCH (08:24)
[2019-03-26] MEDS: DUONEB (A & A) INH PRN ×3 (08:49→15:10)
[2019-03-26] MEDS: SPIRIVA INH SCH (08:49)
[2019-03-26] MEDS: CULTURELLE PO SCH (10:23)
[2019-03-26] MEDS: MIRALAX PO SCH (10:24)
[2019-03-26] MEDS: LIDODERM TOP SCH (10:24)
[2019-03-26] MEDS: FISH OIL CONCENTRATE PO SCH (10:24)
[2019-03-26] MEDS: FERROUS SULFATE PO SCH (10:24)
[2019-03-26] MEDS: VITAMIN C PO SCH (10:24)
[2019-03-26] MEDS: VITAMIN D PO SCH (10:24)
[2019-03-26] MEDS: PROSCAR PO SCH (10:24)
[2019-03-26] MEDS: LEVAQUIN PO SCH (10:24)
--- NOTE | 2019-03-26 11:16 | PROGRESS NOTE ---
DATE: 03/26/2019 SUBJECTIVE: Patient is clinically much improved from admission. He is still very weak, however, unable to assist much of his own care. OBJECTIVE: Vitals: Temperature 98, pulse 106, respiratory 18, blood pressure 105/53. General: Patient is in no current respiratory distress. Medically appears stable to discharge home; however, physically he is still very weak, unable to get back and forth to the restroom. HEENT: Normocephalic. Neck: Supple. Cardiovascular: Regular rate. Chest: Clear. Abdomen: Soft. Extremities: Moves all extremities although generalized weakness. ASSESSMENT: 1. Hyponatremia, resolved. 2. Dementia. 3. Bronchitis. 4. 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 5. Hypotension. PLAN: We will continue antibiotics. Continue physical therapy. Hopefully to rehab when bed is available. cc: Dae Christine MD
[2019-03-26] MEDS: VICON-C PO SCH (20:17)
[2019-03-26] MEDS: LIPITOR PO SCH (20:17)
[2019-03-26] MEDS: VITAMIN E PO SCH (20:17)
[2019-03-26] MEDS: XALATAN 0.005% OPH SOLN BOTH EYES SCH (20:17)
[2019-03-26] MEDS: ARICEPT PO SCH (20:18)
[2019-03-26] MEDS: FLOMAX PO SCH (20:18)
[2019-03-26] MEDS: SEROQUEL PO SCH (20:18)
[2019-03-27] MEDS: PRILOSEC PO SCH (05:55)
[2019-03-27] MEDS: SYNTHROID PO SCH (05:55)
[2019-03-27] MEDS: SPIRIVA INH SCH (08:14)
[2019-03-27] MEDS: DUONEB (A & A) INH PRN ×2 (08:15→11:20)
[2019-03-27] MEDS: LEVAQUIN PO SCH (09:33)
[2019-03-27] MEDS: LIDODERM TOP SCH (09:33)
[2019-03-27] MEDS: CULTURELLE PO SCH (09:34)
[2019-03-27] MEDS: PROSCAR PO SCH (09:34)
[2019-03-27] MEDS: FERROUS SULFATE PO SCH (09:34)
[2019-03-27] MEDS: FISH OIL CONCENTRATE PO SCH (09:34)
[2019-03-27] MEDS: FLONASE NAS PRN (09:34)
[2019-03-27] MEDS: VITAMIN D PO SCH (09:34)
[2019-03-27] MEDS: VITAMIN C PO SCH (09:34)
[2019-03-27] MEDS: MIRALAX PO SCH (09:35)
--- NOTE | 2019-03-27 11:01 | DISCHARGE SUMMARY ---
ADMISSION DATE: 03/18/2019 DISCHARGE DATE: 03/27/2019 DIAGNOSES: 1. Frequent falls. 2. Hyponatremia resolved. 3. History of chronic obstructive pulmonary disease. 4. Diabetes mellitus type 2. 5. Hypertension. 6. Hypothyroid. 7. Dementia. 8. Benign prostatic hypertrophy. 9. 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 10. Bronchitis. DIAGNOSTICS: 1. 03/18/2019 CT of the head revealed generalized cerebral atrophy. No change from 12/25/2018. There has been a previous frontal craniotomy. No evidence of bleed, mass effect, or abnormal extraaxial fluid collection. There is enlargement of the pituitary which was present at the time of the previous study. The visualized paranasal sinuses are clear. 2. Lumbar spine x-ray revealed no evidence of acute bony abnormality, cholelithiasis, scoliosis and degenerative disk disease. 3. Chest x-ray 03/20/2019 revealed mild cardiomegaly. Lungs are well expanded. Heart is mildly enlarged. Vessels are not distended. There are no infiltrates. No effusion identified. 4. Abdominal x-ray revealed no acute abnormality. No free air beneath the diaphragm. Nonspecific bowel gas pattern. The bowel loops are not dilated. No organomegaly. Mild scoliosis with moderate degenerative changes. 5. CT of the head 03/23/2019 revealed no hemorrhage, marked atrophy with chronic subdural fluid collections. No change. Prior craniotomy. chronic microvascular ischemic changes. 6. 03/26/2019 chest x-ray revealed mild cardiomegaly. Lungs are well expanded. Heart is mildly prominent. Vessels are not distended. No infiltrates. No consolidation. No effusion identified. HOSPITAL COURSE: Mr. Wright presented to the hospital with low back pain and general fatigue, which is consistent with his prior episodes of hyponatremia. 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 He carries a history of dementia with a decline over the past months. TSH was 1.8. We did continue his home dose of levothyroxine. He carries a prior diagnosis of diabetes mellitus although he is on no home medications. Blood sugars have ranged from 87 to a high of 133. He does have a history of frequent falls. He was evaluated and participated in physical therapy during his hospitalization. He continues to be medically stable, although physically he is very weak, unable to go back and forth to the restroom, and assist in much of his own care. Therefore, he is being discharged to rehab. DISCHARGE VITAL SIGNS: Blood pressure is 111/69 with a heart rate of 60, respirations 18, and temperature is 97.6 degrees oral with room air saturations 96 98%. PHYSICAL EXAMINATION: General: This is an 88-year-old gentleman who is sitting up in the bed watching TV in no distress. Cardiovascular: Regular rate and rhythm. S1 and S2 are appreciated. Pulmonary: Breath sounds are clear with no increased work of breathing noted. Gastrointestinal: Abdomen is soft, nontender, and nondistended with bowel sounds in all 4 quadrants. Genitourinary: He has no CVA or suprapubic tenderness. He is incontinent. He does have on a brief. Neurologic: He is awake. He is alert. He is oriented to person and place. DISCHARGE MEDICATIONS: 1. Vitamin E 450 mg p.o. at bedtime. 2. Vitamin B complex 1 daily. 3. Spiriva 18 mcg inhaler 1 inhalation daily. 4. Flomax 0.4 mg p.o. at bedtime. 5. Seroquel 150 mg p.o. at bedtime. 6. MiraLAX 17 g p.o. daily. 7. Omeprazole 40 mg p.o. daily. 8. Levothyroxine 100 mcg p.o. daily. 9. Levaquin 500 mg p.o. daily x 5 days 10. Xalatan 0.005% ophthalmic solution 1 drop both eyes at bedtime. 11. Probiotics 1 p.o. daily. 12. Strunk 5 one p.o. q.6 hours p.r.n. 13. Flonase 1 inhalation each nostril daily. 14. Finasteride 5 mg p.o. daily. 15. Ferrous sulfate 325 mg p.o. daily. 16. Aricept 10 mg p.o. at bedtime. 17. Vitamin D 5000 units p.o. daily. 18. Lipitor 80 mg p.o. at bedtime. 19. Vitamin C 500 mg p.o. daily. 20. DuoNeb q.4 hours p.r.n. wheezing. 21. Albuterol inhaler 2 puffs p.o. q.4 hours p.r.n. wheezing. 22. Tylenol 650 mg p.o. q.6 hours p.r.n. headache or fever. DISPOSITION: He is being discharged and transferred to [facility] for rehab in stable condition. FOLLOW UP: Will be per [facility] medical administrative technician at the time of pt discharge from rehab. TIME SPENT: This is a greater than 30 minute discharge. Dictated by PETE Alexandra for Dae Christine MD cc: PETE Alexandra MD [facility]
[2019-03-27 11:32] VITALS: BP 115/55
--- NOTE | 2019-03-28 00:18 | DISCHARGE SUMMARY ---
ADMISSION DATE: 03/18/2019 DISCHARGE DATE: 03/27/2019 ADDENDUM: Patient seen and examined by myself, full note dictated and discussed with nurse practitioner. Patient's hyponatremia is resolved. Dementia seems to be fairly stable. We will discharge him to rehab. Please see full note. cc: Dae Christine MD
== END 2019-03-27 13:16 | DRG 645 ==
LOC: P.ED 10:28 → SUATTDRO 12:57 → P.MEDSURG 12:57
PROVIDERS: ATTEND Family Medicine
CPT/HCPCS: 36415; 70450; 71010; 71045; 72100; 74019; 74020; 80048; 80053; 81001; 82270; 82948; 83690; 83735; 83930; 83935; 84300; 84443; 85025; 85027; 92610; 93005; 94640; 94761; 94799; 97110; 97163; 97530; 99285; A9270; J1956; J3486; J7030; J7070; S0138; XXXXX